=== PATIENT | male | born 1955 | race Caucasian/White ===

== ENCOUNTER → 2017-03-26 16:52 | Emergency (ER) | payer BC ==
[~2017-03-26 16:52] MED LIST: HYDROcodone/ACETAMIN 5-325 MG* 1 TAB PO ONE
--- NOTE | 2017-03-26 17:47 | RAD ---
INDICATION: Left shoulder pain one day after a fall COMPARISON: None. TECHNIQUE: 3 views of the left shoulder were obtained. FINDINGS: The adequately corticated bones are in normal alignment. Mild degenerative changes include narrowing of the acromioclavicular joint and marginal osteophyte formation. The glenohumeral joint appears to be maintained. No acute fracture, dislocation or focal bony abnormality is seen. IMPRESSION: DEGENERATIVE CHANGES OF THE LEFT SHOULDER DESCRIBED ABOVE. If the patient's symptoms persist, follow-up imaging is recommended.
--- NOTE | 2017-03-26 18:22 | ED ---
Renetta King SooYoung, scribed for Pritesh Evangelista MD on 03/26/17 at 1723 . Upper Extremity Pain - HPI Summary HPI Summary: A 62 y/o M presents to ED with c/o L arm pain onset a few hours [employer] when he slipped on the steps and fell, landing on his L side. Associated pain: L hip pain. He is able to ambulate. Has limited ROM with L arm. R-hand dominant. Denies DM, HTN. Smoker. - History of Current Complaint Chief Complaint: EDExtremityUpper Stated Complaint: FALL/SHOULDER INJURY Time Seen by Provider: 03/26/17 17:14 Hx Obtained From: Patient Mechanism Of Injury: Fall From A Standing Position Onset/Duration: Started Hours Ago, Traumatic - AFTER FALL, Still Present Timing: Constant Severity Initially: Moderate Severity Currently: Moderate Pain Location: Shoulder - L Aggravating Factor(s): Movement, Lifting Associated Signs & Symptoms: Positive: Other - POS: L HIP PAIN Related History: Dominant Hand Right - Allergies/Home Medications Allergies/Adverse Reactions: Allergies Allergy/AdvReac Type Severity Reaction Status Date / Time No Known Allergies Allergy Verified 11/27/13 15:14 PMH/Surg Hx/FS Hx/Imm Hx Previously Healthy: No Cardiovascular History: Reports: Other Cardiovascular Problems/Disorders - HIGH CHOLESTEROL GI History: Reports: Other GI Disorders - Cholecystitis s/p cholecystectomy History: Reports: Hx Kidney Stones Denies: Hx Renal Disease Sensory History: Reports: Hx Contacts or Glasses - GLASSES Denies: Hx Hearing Aid Opthamlomology History: Reports: Hx Contacts or Glasses - GLASSES - Surgical History Surgery Procedure, Year, and Place: ROTATOR CUFF REPAIR- RIGHT-2003 [facility]. 2008-LEFT EYELID SURGERY[facility]. Cholecystectomy Hx Anesthesia Reactions: No Infectious Disease History: Denies: Traveled Outside the [place] in Last 30 Days - Family History Known Family History: Positive: Unknown, Other - NEG: REACTION TO ANAESTHESIA - Social History Occupation: Unemployed - OTHER Lives: With Family Alcohol Use: None Substance Use Type: Reports: Marijuana Smoking Status (MU): Former Smoker Review of Systems Negative: Fever Positive: Arthralgia - L SHOULDER; L HIP All Other Systems Reviewed And Are Negative: Yes Physical Exam - Summary Physical Exam Summary: The patient is well-nourished in no acute distress and in no acute pain. The skin is warm and dry and skin color reflects adequate perfusion. HEENT: The head is normocephalic and atraumatic. The pupils are equal and reactive. The conjunctivae are clear and without drainage. Nares are patent and without drainage. Mouth reveals moist mucous membranes and the throat is without erythema and exudate. The external ears are intact. The ear canals are patent and without drainage. The tympanic membranes are intact. Neck is supple with full range of motion and non-tender. There are no carotid bruits. There is no neck vein distension. Respiratory: Chest is non-tender. Lungs are clear to auscultation and breath sounds are symmetrical and equal. Cardiovascular: Heart is regular rate and rhythm. There is no murmur or rub auscultated. There is no peripheral edema and pulses are symmetrical and equal. Abdomen: The abdomen is soft and non-tender. Musculoskeletal: There is no back pain noted. There is good capillary refill. There is no peripheral edema or calf tenderness elicited. BACK IS NON TENDER. TENDERNESS OVER HUMEROL HEAD AT L SHOULDER. Neurological: Patient is alert and oriented to person, place and time. Cranial nerves are grossly intact. Psychiatric: The patient has an appropriate affect and does not exhibit any anxiety or depression. Triage Information Reviewed: Yes Vital Signs On Initial Exam: Initial Vitals Temp Pulse Resp BP Pulse Ox 98.9 F 80 20 113/71 98 03/26/17 16:57 03/26/17 16:57 03/26/17 16:57 03/26/17 16:57 03/26/17 16:57 Vital Signs Reviewed: Yes Diagnostics - Vital Signs Vital Signs Temp Pulse Resp BP Pulse Ox 03/26/17 16:57 98.9 F 80 20 113/71 98 - Laboratory Lab Statement: Any lab studies that have been ordered have been reviewed, and results considered in the medical decision making process. - Radiology SHOULDER XR Xray Interpretation: No Acute Changes - IMPRESSION: DEGENERATIVE CHANGES OF THE LEFT SHOULDER DESCRIBED ABOVE. [SEE [facility] REPORT] If the patient's symptoms persist, follow-up imaging is recommended. Radiology Interpretation Completed By: Radiologist Course/Dx - Course Course Of Treatment: Pt is a 62 y/o M presenting with L arm pain onset a few hours [employer] when he slipped on the steps and fell, landing on his L side. Associated pain: L hip pain. He is able to ambulate. Pt received [place] in ED. Shoulder XR shows no acute findings, instructed to f/u with PCP within a week. . D/C home with sling and [place] rx. - Diagnoses Differential Diagnosis/HQI/PQRI: Positive: Arthritis, Contusion, Fracture ( Closed), Other - dislocation Provider Diagnoses: Contusion of left shoulder Discharge - Discharge Plan Condition: Stable Disposition: HOME Prescriptions: HYDROcodone/ACETAMIN 5-325 MG* [[place] 5-325 TAB*] 1 tab PO Q6H PRN #20 tab MDD 1 PRN Reason: pain Patient Education Materials: Hydrocodone/Acetaminophen (By mouth), Contusion in Adults (ED) Referrals: Ellen Krishnamurthy NP [Primary Care Provider] - 7 Days (Follow up this week.) Additional Instructions: Ice your shoulder as needed. Rest your shoulder by keeping it immobilized in the sling. Follow up with Ellen Krishnamurthy NP this week. The documentation as recorded by the Renetta crane SooYoung accurately reflects the service I personally performed and the decisions made by , Pritesh Evangelista MD.
[2017-03-26 18:32] VITALS: BP 115/74
== END | disposition home or self-care (01) ==
LOC: ED 16:52
DX: S40.012A Contusion of left shoulder, initial encounter (principal); Z87.891 Personal history of nicotine dependence; W10.9XXA Fall (on) (from) unspecified stairs and steps, initial encounter; Y92.9 Unspecified place or not applicable; E78.00 Pure hypercholesterolemia, unspecified
CPT/HCPCS: 99282

== ENCOUNTER 2017-10-19 07:07 | Day surgery (SDC) | payer BC ==
--- NOTE | 2017-10-08 02:36 | HP ---
AMENDED REPORT NOW INCLUDES COSIGNER DESIGNATION - ESIGNED BEFORE ADJUSTMENT HISTORY AND PHYSICAL: DATE OF ADMISSION/SURGERY: 10/19/17 DATE OF HISTORY AND PHYSICAL: 10/06/17 SURGEON: Dr. Gifford * (DICTATED BY WENDY LONG) PROCEDURE: Left shoulder arthroscopic rotator cuff repair, decompression, debridement, subpectoral biceps tenodesis. CHIEF COMPLAINT: Left shoulder pain. HISTORY OF PRESENT ILLNESS: Jan is a 62-year-old right-hand dominant male, who presents for left shoulder pain, this has been going on for several months. He was initially seen by Dr. Jansen. He states that he had an injection several months ago, which did help him for a while, then he has come back. He has night pain. He has difficulty with activities. 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 He states the pain varies from 0-10/10 pain. It is worse at night with overhead activities lifting, pushing, and pulling. He has tried courses of formal physical therapy, which only brought him a mild amount of relief. He did have an injection help for some time, but it only helped for few weeks. He denies any numbness or tingling. No fevers or chills. No catching or locking. PAST MEDICAL HISTORY: Significant for hyperlipidemia. PAST SURGICAL HISTORY: Significant for right shoulder surgery and exploratory abdominal surgery with cholecystectomy and a skin cancer removal. MEDICATIONS: Include simvastatin. ALLERGIES: No known drug allergies. No tape or adhesive allergies. FAMILY MEDICAL HISTORY: Negative. SOCIAL HISTORY: He smokes third of a pack per day for the last 53 years. He denies any alcohol use. He does smoke marijuana daily approximately 2 bowls per day and denies any other illicit drug use. REVIEW OF SYSTEMS: He endorses ability to walk a flight of stairs or city block without need to stop due to shortness of breath or chest pain. He also denies any history of DVT or PE. He endorses a sliver in his right finger and has chronic back pain. He denies any fevers, chills, night sweats, headaches, lightheadedness, changes in vision, chest pain, palpitations, pedal swelling, wheezing, cough, nausea, vomiting, diarrhea, constipation, dysuria, urinary frequency, kidney problems, seizure, stroke, depression, anxiety, numbness, tingling, diabetes, thyroid disease, anemia, easy bruising, excessive bleeding, history of MRSA, hepatitis C, or HIV. PHYSICAL EXAMINATION GENERAL: Well-developed, well-nourished, 52-year-old male in no acute distress. Alert and oriented x3, no gross neurologic deficiencies. He ambulates without a limp. VITAL SIGNS: Height 73 inches, weight 237 pounds, blood pressure 123/74, respirations 20, temperature 97.4, pain level 6, BMI 31.3. HEENT: Normocephalic, atraumatic. Pupils equally round and reactive to light. Extraocular movements intact. NECK: Supple. No palpable cervical lymph nodes. His thyroid is smooth and nontender. CARDIAC: Regular rate and rhythm. No murmurs, rubs, or gallops. No pedal edema. 2+ radial pulses bilaterally. ABDOMEN: Soft and nontender. MUSCULOSKELETAL: Left shoulder examination demonstrates intact skin. No erythema or warmth. He is tender at the bicipital groove and the anterior joint line mildly at the subacromial space. He is able to forward flex to 160 degrees, abduct to 160 with pain, external rotation 75, internal rotation to lower lumbar spine. 4+/5 strength with supraspinatus testing, 5/5 with infraspinatus, belly press, bear hug. Positive Walt test, impingement, Morgan, Speed's, and Quay's test. He is sensitive to light touch in the first dorsal web space, index finger, long finger, and ulnar aspect of the small finger. DIAGNOSTIC STUDIES: X-rays that were obtained previously was reviewed, it demonstrated no fracture or dislocation, he has otherwise well-preserved joint space. He has had previous MRI, which demonstrates a massive supraspinatus tear with retraction of 3 to 4 cm, mild amount of osteoarthritis and evidence of biceps tendinitis, possible partial thickness tear in subscapularis due to mild biceps subluxation. IMPRESSION: Left shoulder rotator cuff tear with biceps tendinitis. PLAN: Jan Higgins is scheduled to undergo left shoulder arthroscopic rotator cuff repair, decompression, debridement, and subpectoral biceps tenodesis on with Dr. Gifford. He will follow up in clinic 10 to 14 days postop for suture removal and followup. A prescription for Percocet was e-scribed to the patient's pharmacy of record for postoperative management. I-STOP was checked prior to sending the script. WENDY LONG [id number]/[facility] #: [id number] MTDLori
[~2017-10-19 07:07] MED LIST changes: +Buffered Lidocaine 0.9% SYRIN* 5 ML/SYR SYRINGE INTRADERM ONE; +Dexamethasone IV* 4 MG/ML 1 ML (4 MG) IV SLOW PU ONE; +Famotidine IV* 10 MG/ML 2 ML (20 mg) IV ONE; -HYDROcodone/ACETAMIN 5-325 MG* 1 TAB PO ONE
[2017-10-19] MEDS ORDERED: Famotidine IV* 10 MG/ML 2 ML (20 mg) ONE (07:22)
[2017-10-19] MEDS ORDERED: Buffered Lidocaine 0.9% SYRIN* 5 ML/SYR SYRINGE ONE (07:23)
[2017-10-19] MEDS ORDERED: ceFAZolin 2 GM PREMIX (*) 2 GM/50 ML BAG IVPB ONE (07:23)
[2017-10-19] MEDS ORDERED: Dexamethasone IV* 4 MG/ML 1 ML (4 MG) ONE (07:23)
[2017-10-19] MEDS ORDERED: ROPIVACAINE 5 MG/ML 30 ML BTL (0.5%) ONE (08:52)
[2017-10-19] MEDS ORDERED: fentaNYL* 50 MCG/ML 2 ML VIAL (100 MCG VIAL) ONE ×3 (08:53→11:28)
[2017-10-19] MEDS ORDERED: Midazolam* 1 MG/ML 10 ML VIAL (10 MG) ONE (08:53)
[2017-10-19] MEDS ORDERED: Ketorolac INJ* 30 MG/ML 1 ML VIAL ONE (08:53)
[2017-10-19] MEDS ORDERED: Ondansetron INJ* 2 MG/ML VIAL ONE ×2 (08:53→12:59)
[2017-10-19] MEDS ORDERED: Propofol* 10 MG/ML 20 ML BTL IV PUSH ONE (08:53)
[2017-10-19] MEDS ORDERED: Atracurium* 10 MG/ML 10 ML VIAL ONE (08:54)
[2017-10-19] MEDS ORDERED: HYDROmorphone INJ* 1 MG/ML CARPUJECT SYRINGE IV PRN (09:08)
[2017-10-19] MEDS ORDERED: oxyCODONE/Acetamin 5/325 MG* TAB PO PRN (09:08)
[2017-10-19] MEDS ORDERED: Ondansetron INJ* 2 MG/ML VIAL IV PRN (09:08)
[2017-10-19] MEDS ORDERED: fentaNYL* 50 MCG/ML 2 ML VIAL (100 MCG VIAL) IV PRN (09:08)
[2017-10-19] MEDS ORDERED: DiMENhydriNATE IV* 50 MG/ML VIAL IV PUSH PRN (09:08)
[2017-10-19] MEDS ORDERED: Bupivacaine 0.25% SDV* 30 ML ONE (09:57)
[2017-10-19] MEDS ORDERED: Metoprolol Tartrate IV* 1 MG/ML 5 ML VIAL ONE (10:11)
[2017-10-19 13:47] VITALS: BP 139/86
--- NOTE | 2017-10-23 03:23 | OP ---
CC: PCP, Ellen Monson NP * DATE OF OPERATION: 10/19/17 - [facility] DATE OF : 57 SURGEON: Racheal Gifford MD MOBILITY ENGINEER: WENDY Little. An operator/assistant foreman was needed for the entirety of the case to help with positioning, retraction, and was utilized throughout all portions of the case. ANESTHESIOLOGIST: Aleks Camacho MD PRE-OP DIAGNOSIS: Left shoulder full-thickness rotator cuff tear with mild osteoarthritis. POST-OP DIAGNOSES: 1. Full thickness L-shaped tear of the supraspinatus tendon. 2. Proximal biceps rupture. 3. Mild chondrosis of the glenohumeral joint. OPERATIVE PROCEDURE: Left shoulder arthroscopy with: 1. Extensive glenohumeral debridement including debridement of biceps stump as well as chondroplasty. 2. Subacromial decompression with acromioplasty. 3. Rotator cuff repair, supraspinatus, double-row fashion. INDICATIONS: Jan Higgins is a 62-year-old gentleman, who initially injured his shoulder in March of 2017. He slipped at home and fell on his elbow and anterior shoulder. He had a lot of pain, inability to weigh bear. He failed conservative treatment. He was diagnosed with full-thickness rotator cuff tear with retraction of supraspinatus tendon. Risks and benefits of surgery versus nonoperative treatment were discussed at length to include, but not limited to, bleeding, infection, damage to nerve, vessels, surrounding structures, wound nonhealing, persistent pain, need for surgery, scarring, stiffness, incomplete relief of symptoms, risk of anesthesia. The patient is a smoker and he was warned that quitting smoking would allow the tendon to heal back more lively. He elected to proceed with surgery. IMPLANTS USED: Two 4.75 Healicoil and 1 MultiFix. COMPLICATIONS: None. ESTIMATED BLOOD LOSS: Minimal. DESCRIPTION OF PROCEDURE: The patient was greeted in the preoperative area by the attending surgeon. The correct extremity was marked and the consent was confirmed. The patient underwent interscalene block by anesthesiologist, after which he was brought to the operating suite where he was placed in supine position on the operating room table. He underwent general anesthesia with endotracheal intubation, after which he was placed in the right lateral decubitus position with all bony prominences padded. He was supported with a peg board. The left arm was draped unsterilely with 10 pounds of traction. The left shoulder was then prepped and draped in usual sterile fashion beginning with chlorhexidine soap, scrub, and alcohol wipe, and a final prep with ChloraPrep. After appropriate surgical pause indicating side, site, procedure, and administration of antibiotics, a standard postero-lateral portal was made sharply with an 11 blade, the scope was introduced in the joint. The joint was examined. There was abundant hyperemia and inflammation and synovitis in the joint, evidence of acute on chronic injury, the gleno-humeral joint, the humeral head had areas of grade 0 to 1 changes. The glenoid had areas of grade 0 to 1 changes and then smaller area towards the mid surface that had grade 2 changes. There was evidence of a full-thickness tear of the proximal biceps with a moderate-sized stump that was still present. The anterior portal was made in an outside-in fashion. The interval was disrupted in the supraspinatus tendon, was found to have a full- thickness tear. The cannula was placed and the shaver was used to debride the unstable flaps of the anterior, posterior, superior labrum. A biter was used to debride the biceps stump. There was a small amount of glenoid wear with unstable flaps, which was debrided back using a shaver. The inferior recess was intact. The subscapularis had evidence of partial-thickness tearing, but it was intact for the most part. Decision was made to complete the debridement and address the supraspinatus tendon rupture. The scope was repositioned in the subacromial space. There was abundant bursa present. Lateral portal was made in an outside-in fashion. Shaver was used to debride this back, which demonstrated an anterolateral spur. The CA ligament already had tearing in it and fraying. This was peeled back. The moderate anterolateral spur was then debrided back using the arthroscopic bur. All excess debris was removed from this portion of the case. The rotator cuff tear was fully present and visible. This was found to have some retraction. There was found to be an L-shaped type of tear involving the anterior aspect of the supraspinatus footprint that joins with the subscapularis. The cuff was then carefully mobilized. The adhesions were released superiorly and inferiorly at the supraspinatus tendon. Once it was fully mobilized and brought back, the greater tuberosity was prepared in usual fashion with 4-0 oval bur to allow for gentle decortication as well as the rasp. Once the glenoid portion was prepared and then remaining bursa around this portion was removed, two 4.75 Healicoil anchors were placed about the medial row with excellent purchase. The sutures were then passed through the tendon to allow for fixation in the most anterior portion of the supraspinatus tendon. These were passed in horizontal mattress and one was passed in a simple fashion. Once the sutures were passed they were then tied down using arthroscopic knot tying which helped to reapproximate the tendon back to the bone. After these were applied, the remaining strands were then passed through a MultiFix anchor, which was then passed and used for knotless double-row fixation. Final images were obtained. All fluid and debris were removed from the joint. The joint was thoroughly lavaged. Final images were obtained. The portals were closed with 3-0 nylon. Sterile dressings were applied, as well as a Cryo/Cuff and an UltraSling. He was awoken from anesthesia and transferred to PACU in stable condition. POSTOPERATIVE PLAN: He will be nonweightbearing. He will be in a sling for 6 weeks. He will start therapy at 4 weeks. He will be discharged on pain medications. DVT prophylaxis considered, but deferred due to no previous personal or family history. I will see the patient back 10 to 14 days. [id number]/[facility] #: [id number] MTDD
== END 2017-10-19 13:47 | disposition home or self-care (01) ==
LOC: OR 07:07
PROVIDERS: ATTEND Orthopaedic Surgery
DX: S46.012A Strain of muscle(s) and tendon(s) of the rotator cuff of left shoulder, initial encounter (principal); S46.212A Strain of muscle, fascia and tendon of other parts of biceps, left arm, initial encounter; M24.112 Other articular cartilage disorders, left shoulder; W01.0XXA Fall on same level from slipping, tripping and stumbling without subsequent striking against object, initial encounter; Y92.9 Unspecified place or not applicable; G89.18 Other acute postprocedural pain; E78.5 Hyperlipidemia, unspecified; F17.210 Nicotine dependence, cigarettes, uncomplicated; M75.22 Bicipital tendinitis, left shoulder
CPT/HCPCS: C1713; J0690; J1100; J1885; J2250; J2405; J2704; J2795; J3010; J3490

== ENCOUNTER 2019-09-08 05:14 | Emergency (ER) | payer BC ==
[2019-09-08 05:21] VITALS: BP 119/86
--- NOTE | 2019-09-08 05:41 | ED ---
Bite Injury/Animal - HPI Summary HPI Summary: This pt is a 64 Y/O M presenting to [facility] with a CC of a tick bite that has a bullseye anson on his R inner thigh with no signs of pain. He states that he pulled the tick out before it had puffed up. He denies any fever, chills, N/V, SOB, headaches, and sore throats. He states no aggravating or alleviating factors. He has no pertinent PMHx. - History of Current Complaint Chief Complaint: EDRashSkinAbscess Stated Complaint: TICK BITE PER PT Time Seen by Provider: 09/08/19 05:34 Hx Obtained From: Patient Onset of Injury: Happened days ago - 1 Type of Bite: Wild Animal - tick Has Animal Been Immunized?: N/A Severity Currently: None Pain Intensity: 0 Pain Scale Used: 0-10 Numeric Aggravating Factor(s): Nothing Alleviating Factor(s): Nothing Associated Signs And Symptoms: Positive: Negative - chills, N/V, SOB, headaches , and sore throats. Negative: Fever Animal Available for Observation: No Animal Control Notified: No - Allergies/Home Medications Allergies/Adverse Reactions: Allergies Allergy/AdvReac Type Severity Reaction Status Date / Time No Known Allergies Allergy Verified 09/25/18 10:08 PMH/Surg Hx/FS Hx/Imm Hx Previously Healthy: Yes Endocrine/Hematology History: Denies: Hx Diabetes Cardiovascular History: Reports: Other Cardiovascular Problems/Disorders - HIGH CHOLESTEROL Denies: Hx Pacemaker/ICD GI History: Reports: Other GI Disorders - Cholecystitis s/p cholecystectomy History: Reports: Hx Kidney Stones Denies: Hx Renal Disease Musculoskeletal History: Reports: Hx Arthritis Sensory History: Reports: Hx Contacts or Glasses - GLASSES Denies: Hx Hearing Aid Opthamlomology History: Reports: Hx Contacts or Glasses - GLASSES Psychiatric History: Denies: Hx Panic Disorder - Surgical History Surgical History: Yes Surgery Procedure, Year, and Place: ROTATOR CUFF REPAIR- [place] [facility] [place] [facility]ID SURGERY[place]. Cholecystectomy Hx Anesthesia Reactions: No Infectious Disease History: No Infectious Disease History: Denies: Traveled Outside the [place] in Last 30 Days - Family History Known Family History: Positive: Unknown, Other - NEG: REACTION TO ANAESTHESIA - Social History Occupation: Employed Full-time Lives: With Family Alcohol Use: None Hx Substance Use: Yes Substance Use Type: Reports: Marijuana Substance Use Comment - Amount & Last Used: COUPLE TIMES A DAY Hx Tobacco Use: Yes Smoking Status (MU): Light Every Day Tobacco Smoker Amount Used/How Often: 1 PACK Q 3 DAYS X 40 YEARS Have You Smoked in the Last Year: Yes Review of Systems Negative: Fever Negative: Sore Throat Negative: Chest Pain Negative: Shortness Of Breath Negative: Vomiting, Nausea Positive: Rash - bullseye anson where tick was located Negative: Headache All Other Systems Reviewed And Are Negative: Yes Physical Exam - Summary Physical Exam Summary: Appearance: Well-appearing, Well-nourished, lying in bed comfortably Skin: Warm, dry, tick bite on the R inner thigh. Sharp marking of erythema around the area. Eyes: sclera anicteric, no conjunctival pallor ENT: mucous membranes moist, pharynx appears normal Neck: Supple, nontender Respiratory: Clear to auscultation, no signs of respiratory distress Cardiovascular: Normal S1, S2. No murmurs. Normal distal pulses in tibial and radial bilaterally. Abdomen: Soft, nontender, normal active bowel sounds present Musculoskeletal: Normal, Strength/ROM Intact Neurological: A&Ox3, awake and alert, mentation is normal, speech is fluent and appropriate Psychiatric: affect is normal, does not appear anxious or depressed Triage Information Reviewed: Yes Vital Signs On Initial Exam: Initial Vitals Temp Pulse Resp BP Pulse Ox 96.7 F 80 18 119/86 98 09/08/19 05:15 09/08/19 05:15 09/08/19 05:15 09/08/19 05:15 09/08/19 05:15 Vital Signs Reviewed: Yes Procedures - Sedation Patient Received Moderate/Deep Sedation with Procedure: No Diagnostics - Vital Signs Vital Signs Temp Pulse Resp BP Pulse Ox 09/08/19 05:15 96.7 F 80 18 119/86 98 - Laboratory Lab Statement: Any lab studies that have been ordered have been reviewed, and results considered in the medical decision making process. Bite Injury Course/Dx - Course Course Of Treatment: This pt is a 64 Y/O M presenting to [facility] with a CC of a tick bite that has a bullseye anson on his R inner thigh with no signs of pain. He states that he pulled the tick out before it had puffed up. His PE found that he has a sharp erythematous rash circling where the tick was located. This is not an EM rash. The tick was pulled off before it could pass an diseases. He will be discharged home with a Dx of a tick bite. - Diagnoses Provider Diagnosis: Tick bite Discharge ED - Sign-Out/Discharge Documenting (check all that apply): Patient Departure - discharge - Discharge Plan Condition: Good Disposition: HOME Patient Education Materials: Tick Bite (ED) Referrals: Bindu Glover MD [Primary Care Provider] - If Needed - Billing Disposition and Condition Condition: GOOD Disposition: Home - Attestation Statements Document Initiated by Faby: Yes Documenting Scribe: Johny Cortez Provider For Whom Faby is Documenting (Include Credential): Jan Chavarria MD Scribe Attestation: Johny King scribed for Jan Chavarria MD on 09/09/19 at 1955. Scribe Documentation Reviewed: Yes Provider Attestation: The documentation as recorded by the Johny crane accurately reflects the service I personally performed and the decisions made by me, Jan Chavarria MD Status of Scribe Document: Viewed
== END 2019-09-08 05:42 | disposition home or self-care (01) ==
LOC: ED 05:14
DX: S70.361A Insect bite (nonvenomous), right thigh, initial encounter (principal); W57.XXXA Bitten or stung by nonvenomous insect and other nonvenomous arthropods, initial encounter; Y92.9 Unspecified place or not applicable; R21 Rash and other nonspecific skin eruption
CPT/HCPCS: 99281

== ENCOUNTER 2024-06-06 05:20 | Observation (INO) ==
[2024-06-06] MEDS: Lactated Ringers 1000 ml BAG 1,000 ML IV ONE ×2 (07:40→11:10)
[2024-06-06 07:41] LABS: ABS Basophils 0.1 10^3/uL (0.0-0.1); ABS Lymphocytes 1.4 10^3/uL (1.0-4.8); ABS Monocytes 1.2 10^3/uL (0.0-1.1); ABS Neutrophils 12.4 10^3/uL (1.5-7.6); ABS Nucleated RBC 0.01 10^3/ul; Eosinophil % 0.1 %; Hematocrit 45.9 % (38-53); Hemoglobin 16.1 g/dL (13.2-16.3); Lymphocyte % 9.2 %; Mean Corpuscular Hemoglobin 31.7 pg (27-33); Mean Corpuscular Hgb Conc 35.2 g/dL (31-36); Mean Corpuscular Volume 90.2 fL (80-97); Mean Platelet Volume 8.6 fL (7.5-11.2); Nucleated Red Blood Cells % 0.1 %/100WBC (0.0-0.8); Platelet Count 312 10^3/uL (150-450); Red Blood Count 5.09 10^6/uL (4.06-5.63); Red Cell Distribution Width 12.7 % (12-17); White Blood Count 15.1 10^3/uL (3.6-10.2)
[2024-06-06] MEDS: Ondansetron 4 mg VIAL 2 MG/ML 2 ml VIAL IV ONE (07:41)
[2024-06-06 07:48] LABS: INR 1.12 (0.83-1.13)
[2024-06-06 08:40] LABS: Urine Appearance Clear; Urine Bilirubin Negative (Negative); Urine Blood 3+ (Negative); Urine Color Yellow; Urine Glucose Negative (Negative); Urine Ketones 1+ (Negative); Urine Nitrite Negative (Negative); Urine Protein 1+ (>=30 mg/dL) (Negative); Urine Specific Gravity 1.021 (1.002-1.030); Urine Urobilinogen Negative (Negative)
[2024-06-06 09:05] LABS: Urine Bacteria Absent /HPF (Absent); Urine Red Blood Cell 3+(>10/hpf) /HPF (0-Trace); Urine Squamous Epithelial Cell Present /HPF (Absent); Urine White Blood Cell 1+(6-10/hpf) /HPF (0-Trace)
[2024-06-06 09:37] LABS: Albumin 4.7 g/dL (3.2-5.2); Albumin/Globulin Ratio 1.7 (1-3); C Reactive Protein 50.75 mg/L (<8.01); Calcium 9.5 mg/dL (8.6-10.3); Creatinine, Serum 2.43 mg/dL (0.67-1.17); Globulin 2.8 g/dL (2-4); Potassium 4.2 mmol/L (3.5-5.0); Total Bilirubin 1.3 mg/dL (0.2-1.0); Total Protein 7.5 g/dL (6.4-8.9); eGFR CKD-EPI 28.2 (>60)
[2024-06-06] MEDS: cefTRIAXone 1 gm/50 mL D5W 1 GM/50 ML BAG IV ONE (12:57)
[2024-06-06] MEDS ORDERED: Ondansetron 4 mg VIAL 2 MG/ML 2 ml VIAL IV PRN ×2 (13:05→17:23)
[2024-06-06] MEDS: NS 0.9% 1000 ml BAG 1,000 ML IV SCH (13:38)
[2024-06-06] MEDS ORDERED: Midazolam 5 mg/5 ml VIAL 1 mg/ml 5 ml VIAL (5 mg) ONE (16:19)
[2024-06-06] MEDS ORDERED: Ondansetron 4 mg VIAL 2 MG/ML 2 ml VIAL ONE (16:19)
[2024-06-06] MEDS ORDERED: Dexamethasone IV 4 MG/ML VIAL 1 ml VIAL ONE (16:19)
[2024-06-06] MEDS ORDERED: Lidocaine 2% PF 5 ML VIAL ONE (16:19)
[2024-06-06] MEDS ORDERED: Phenylephrine 40 mcg/mL 10mL (400mcg) SYRINGE ONE (16:19)
[2024-06-06] MEDS ORDERED: fentaNYL 100 mcg/2 ml 50 MCG/ML VIAL ONE (16:19)
[2024-06-06] MEDS ORDERED: Iohexol 180 (CONTRAST) 10 ML SDV IV ONE (16:35)
[2024-06-06] MEDS ORDERED: Lidocaine 2% JELLY 10 ML JELLY ONE (16:35)
[2024-06-06] MEDS ORDERED: fentaNYL 100 mcg/2 ml 50 MCG/ML VIAL IV PRN (17:23)
[2024-06-06] MEDS ORDERED: Buffered Lidocaine 1% SYRIN 1 ml INTRADERM ONE (17:23)
[2024-06-06] MEDS ORDERED: Acetaminophen IV 1 GM/100ML 1,000 MG/100 ML BAG IV ONE (17:23)
[2024-06-06] MEDS ORDERED: Naloxone 0.4 mg VIAL 0.4 mg/ml 1 ml VIAL IV PRN (17:23)
[2024-06-06] MEDS ORDERED: NS 0.45% 1000 ml BAG 1,000 ML IV SCH (18:00)
[2024-06-06] MEDS ORDERED: Lactated Ringers 1000 ml BAG 1,000 ML IV SCH (18:00)
[2024-06-06 18:15] VITALS: BP 120/87
[2024-06-06] MEDS ORDERED: Multivitamins/Minerals TAB PO SCH (21:00)
[2024-06-07] MEDS ORDERED: Aspirin EC 81 mg TAB.EC (enteric coated) PO SCH (09:00)
== END 2024-06-06 18:05 | disposition home or self-care (01) ==
LOC: EDHOLD 05:20 → ED 05:20 → AA 15:07
PROVIDERS: ADMIT Hospitalist; ATTEND Hospitalist